=== PATIENT | female | born 1950 | race Caucasian/White ===

== ENCOUNTER 2020-12-22 10:28 | Outpatient (CLI) | payer MEDICARE, OTHER | END 2020-12-22 10:29 | disposition home or self-care (01) | LOC: BICMAMMO 10:28 | PROVIDERS: ATTEND Family Medicine | DX: Z12.31 Encounter for screening mammogram for malignant neoplasm of breast (principal); M85.89 Other specified disorders of bone density and structure, multiple sites | CPT/HCPCS: 77063; 77067; 77080 ==

== ENCOUNTER 2020-12-27 09:24 | Outpatient (CLI) | payer MEDICARE, OTHER | END 2020-12-27 09:25 | disposition home or self-care (01) | LOC: BICMAMMO 09:24 | PROVIDERS: ATTEND Family Medicine | DX: N63.20 Unspecified lump in the left breast, unspecified quadrant (principal); Z85.820 Personal history of malignant melanoma of skin | CPT/HCPCS: 76642; 77065; G0279 ==

== ENCOUNTER → 2020-12-30 | Day surgery (SDC) | payer MEDICARE, OTHER | LOC: BICULT 13:03 | PROVIDERS: ATTEND Family Medicine | PROC: 0H9U3ZX Drainage of Left Breast, Percutaneous Approach, Diagnostic (ICD-10-PCS; principal; 2020-12-30) | DX: C50.812 Malignant neoplasm of overlapping sites of left female breast (principal) | CPT/HCPCS: 19083; 88305; 88341; 88342 ==